=== PATIENT | female | born 1960 | race Caucasian/White ===

== ENCOUNTER → 2017-04-27 | Outpatient (CLI) | payer MEDICARE ==
[~2017-04-27] MED LIST: ALPR1TAB2 PO
--- NOTE | 2017-04-27 12:27 | KCIC ---
Two-view right first HISTORY: Chronic pain. FINDINGS: No evidence of acute fracture. Joint spaces and alignment are intact. No dislocation. IMPRESSION: No acute fracture or dislocation. Electronically signed by: Smooth Fu MD (04/27/2017 12:24 PM) [facility]
== END | disposition home or self-care (01) ==
LOC: KCIC 11:31
PROVIDERS: ATTEND Family Medicine
DX: M79.644 Pain in right finger(s) (principal); G89.29 Other chronic pain
CPT/HCPCS: 73140

== ENCOUNTER 2022-01-31 12:17 | Emergency (ER) | payer MEDICARE ==
[~2022-01-31] VITALS: Ht 165.1 cm; Wt 72.7 kg
[2022-01-31] MEDS ORDERED: KETOROLAC 30 MG/ML VIAL. IM ONE (12:45)
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
[2022-01-31] MEDS ORDERED: ACETAMINOPHEN 500 MG TABLET PO ONE (13:45)
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
[2022-01-31 15:15] VITALS: BP 128/61
--- NOTE | 2022-02-06 09:45 | EKG ---
[facility] [address] [place] [id number] Test Date: 2022-01-31 Test Time: 12:25:31 Pat Name: NELY MILAN Department: Room: Gender: F [employer]ician: : 1960 Requested By: EMMA MOSQUEDA Order Number: [id number] Reading MD: Measurements Intervals [place] Rate: 65 P: 50 AL: 176 QRS: 21 QRSD: 84 T: 26 QT: 418 QTc: 435 Interpretive Statements SINUS RHYTHM OTHERWISE NORMAL ECG RI6.02 No previous ECG available for comparison
== END 2022-01-31 15:52 | disposition home or self-care (01) ==
LOC: ER 12:17
DX: S80.12XA Contusion of left lower leg, initial encounter (principal); S80.11XA Contusion of right lower leg, initial encounter; F32.A Depression, unspecified; M54.2 Cervicalgia; G43.909 Migraine, unspecified, not intractable, without status migrainosus; Z87.442 Personal history of urinary calculi; Z88.1 Allergy status to other antibiotic agents; Z88.2 Allergy status to sulfonamides; Z88.5 Allergy status to narcotic agent; Z88.8 Allergy status to other drugs, medicaments and biological substances; W18.39XA Other fall on same level, initial encounter; Y93.89 Activity, other specified; Y92.89 Other specified places as the place of occurrence of the external cause; Y99.8 Other external cause status
CPT/HCPCS: 70450; 72125; 96372; 99285; J1885; 93005